=== PATIENT | female | born 1940 | race Caucasian/White ===

== ENCOUNTER 2023-09-05 20:35 | Emergency (ER) | payer MEDICARE, BC, SELFPAY ==
[2023-09-05 20:45] VITALS: BP 190/82
[2023-09-05 20:46] VITALS: BMI 24.9
[2023-09-05 20:50] VITALS: BP 190/82
[2023-09-05 21:00] VITALS: BP 161/57
[2023-09-05 21:02] LABS: Urine Albumin Negative (Neg - Trace); Urine Bilirubin Negative (Negative); Urine Character Clear (Clear); Urine Color Yellow; Urine Glucose Negative (Negative); Urine Ketone Negative (Negative); Urine Leukocyte Negative (Negative); Urine Nitrite Negative (Negative); Urine Occult Blood Negative (Negative); Urine Urobilinogen Negative (Neg - 1+)
[2023-09-05 21:05] LABS: % Basophils 0.5 % (0-2); % Eosinophils 2.8 % (0-6); % Lymphocytes 45.4 % (20.5-51.1); % Monocytes 8.5 % (1.7-9.3); % Neutrophils 42.8 % (42.2-75.2); Absolute Eosinophils 0.2 10^3/uL (0-0.7); Absolute Lymphocytes 2.7 10^3/uL (1.2-3.4); Absolute Monocytes 0.5 10^3/uL (0.1-0.6); Absolute Neutrophils 2.6 10^3/uL (1.4-6.5); Hematocrit 41.1 % (37.0-47.0); Hemoglobin 14.6 g/dL (12.0-16.0); Mean Corp Hgb Conc. 35.5 g/dL (33.0-37.0); Mean Corpuscular Hgb 31.7 pg (27.0-31.0); Mean Corpuscular Volume 89.3 fL (81.0-99.0); Mean Platelet Volume 10.8 fL (7.4-10.4); Nucleated Red Blood Cells % 0 %; Platelet Count 224 10^3/uL (130-400); Red Cell Dist. Width 14.9 % (11.5-14.5)
--- NOTE | 2023-09-05 21:11 | ED.GENMED ---
History of Present Illness
General
Chief Complaint: Abdominal Pain
Source: patient
Exam Limitations: none
Time Seen by Provider: 09/05/23 21:10
Nursing documentation reviewed up to this point in time: agreed with
History of Present Illness
History of Present Illness:
82-year-old female from home, history of uterine and bladder prolapse with a mesh sling application 10 years ago. Otherwise no significant past medical history, takes no prescriptive medications.
Patient states she has had right mid to lower abdominal pain off and on for months. In June she saw her nurse practitioner in [place], had a UA which was positive, took an antibiotic but still had the intermittent pain.
07/17 she came back [place] pain was increasing had a negative urinalysis was referred to colorectal surgery as she thought it may be a bowel problem
08/11, she saw colorectal surgeon Lester Devlin who could not find anything and ordered a colonoscopy which she has scheduled for 10/01
She has had no problems moving her bowels. Her last BM was earlier today.
Today, after eating at 4:30 PM she felt nauseous, went and laid down and felt a 'bulge' in her right lower abdomen.
She denies fever or chills. She denies vomiting. She does not feel nauseous now and the bulge in her abdomen is not there now. She also has no pain at this time.
She saw her [facility] nurse practitioner today and had blood work ordered which she had done at [facility] and also ordered was a pelvic and transvaginal ultrasound which she could not schedule soon enough so she came here for evaluation.
Past History
Past History
ED Past Medical History: None
ED Past Surgical History: Urological (Bladder and uterine prolapse surgery 10 years ago with sling and mesh)
Social History
Tobacco: Non-smoker
Alcohol: None
Personal:
Living: with family
Review of Systems
Review of Systems
Allergies reviewed?: Yes
All Other Systems: ROS reviewed and negative except as documented in HPI and ROS
Constitutional: Denies fever
Respiratory: Denies trouble breathing
Cardiac: Denies chest pain
ABD/GI: Reports abdominal pain and nausea; Denies vomiting, diarrhea, constipated, bloody stools, black stools or anorexia
: Denies dysuria, difficulty voiding or urgency
Musculoskeletal: Reports no symptoms
Skin: Reports no symptoms
Neurological: Reports no symptoms
Phy Exam
Physical Exam
Physical Exam:
GENERAL: No acute distress. A&Ox3.
CONSTITUTIONAL: Afebrile.
EYES: clear, conjunctivae normal
ENMT: moist mucus membranes
RESPIRATORY: Regular respirations, nonlabored, lungs clear.
CARDIOVASCULAR: Regular rate and rhythm, no murmurs, no rubs.
GI: Soft, nontender, normal BS, no palpable masses
MUSCULOSKELETAL: Moves with ease. Well perfused.
SKIN: Warm, dry, pink
PSYCH: Normal mood and affect. Well kept, interactive and appropriate
NEUROLOGIC: Awake, alert and oriented. No focal neurological deficits
Course
Orders/Labs/Results
Orders:
Orders
09/05/23 20:54
Complete Blood Count/With Diff Urgent
Comprehensive Metabolic Panel Urgent
Lipase Urgent
Urinalysis Reflex To Culture Urgent
Date Specimen was Collected: 09/05/23
Time Specimen was Collected: 20:48
09/05/23 21:24
0.9% Sodium Chloride 500 ml [Nss] 500 ml IV BOLUS
US Pelvis W Transvag Combined Urgent
Comment:
Reason For Exam: pain mid to right lower abdomen
Abnormal Lab Results
09/05/23
20:54
MCH 31.7 H pg
(27.0-31.0)
RDW 14.9 H %
(11.5-14.5)
MPV 10.8 H fL
(7.4-10.4)
Chloride 108 H mmol/L
(98-107)
Carbon Dioxide 21 L mmol/L
(22-30)
BUN 28 H mg/dl
(7-17)
09/05/23 20:54
09/05/23 20:54
Vital Signs
Initial and Last Documented VS:
Initial Vital Signs
BP
190/82
09/05/23 20:45
Last Documented Vital Signs
Temp Pulse Resp BP Pulse Ox
98.5 F 57 18 105/59 93
09/05/23 20:50 09/05/23 20:50 09/05/23 20:50 09/06/23 00:00 09/06/23 00:00
MDM/Problems Addressed
Differential Diagnosis Includes:
Intermittent hernia, intermittent ovarian torsion, colitis
MDM/Problems Addressed:
82-year-old female from home, history of uterine and bladder prolapse with a mesh sling application 10 years ago. Otherwise no significant past medical history, takes no prescriptive medications.
Patient states she has had right mid to lower abdominal pain off and on for months. In June she saw her nurse practitioner in [place], had a UA which was positive, took an antibiotic but still had the intermittent pain.
07/17 she came back [place] pain was increasing had a negative urinalysis was referred to colorectal surgery as she thought it may be a bowel problem
08/11, she saw colorectal surgeon Lester Devlin who could not find anything and ordered a colonoscopy which she has scheduled for 10/01
She has had no problems moving her bowels. Her last BM was earlier today.
Today, after eating at 4:30 PM she felt nauseous, went and laid down and felt a 'bulge' in her right lower abdomen.
She denies fever or chills. She denies vomiting. She does not feel nauseous now and the bulge in her abdomen is not there now. She also has no pain at this time.
She saw her [facility] nurse practitioner today and had blood work ordered which she had done at [facility] and also ordered was a pelvic and transvaginal ultrasound which she could not schedule soon enough so she came here for evaluation.
9:30 PM:
CBC normal
CMP with no clinically significant abnormality. BUN 28, IV fluids infusing for mild dehydration
Urinalysis is negative
12:00 AM 09/06/2023:
Ultrasound abdomen pelvis: Preliminary radiology report read: Normal size uterus. There is fluid distending the endometrial canal. This is indeterminate however consider follow-up pelvic exam to exclude the possibility of cervical stenosis or
other source of obstruction. Alternately we could perform an elective MRI of the pelvis. The ovaries are not visualized. No free fluid.
Results discussed with patient, she was given a copy of the report as well as all of her lab work.
She was referred back to her primary nurse practitioner tomorrow to discuss findings
She was given referral to [facility] and encouraged to follow-up with [facility].
Patient had no abdominal pain during her stay
Dressing self, ambulating well
*Critical Care Note
Total Time (30-74mins, 75-104mins- exclusive of procedures): Not Applicable
ED Attending Note
-
Portions of this chart may have been created with voice recognition software.� Occasional wrong word or��sound alike� substitutions may have occurred due to the inherent limitations of voice recognition software.
Discharge Plan
Departure
Patient Disposition: Home (Routine Discharge)
Date of Disposition: 09/06/23
Time of Disposition: 00:20
Patient with high blood pressure during this ER visit?: No
Condition: Good
Discharge Problem:
Abdominal pain
Instructions: Abdominal Pain
Prescriptions:
No Action
cyanocobalamin (vitamin B-12) 1,000 mcg Tablet
1,000 mcg PO DAILY
vitamin B complex [B Complex] Capsule
1 cap PO DAILY
resveratrol 100 mg Capsule
100 mg PO DAILY
cranberry fruit 400 mg Tablet
400 mg PO DAILY
Sumner-3 350 mg-235 mg- 90 mg-597 mg Capsule,Delayed Release(Dr/Ec)
1 cap PO DAILY
quercetin 500 mg Capsule
100 mg PO DAILY
astaxanthin 12 mg Capsule
12 mg PO DAILY
Magnesium Malate
5 tab PO HS
Prevagen
1 tab PO DAILY
Referrals:
Yvette Plunkett MD [Active] - Next open appointment
Jesica San CRNP [Family Provider] - Tomorrow
Activity Restrictions/Additional Instructions:
As we discussed, the ultrasound of your pelvis shows some fluid in the endometrial canal. Radiologist recommends a follow-up pelvic exam. Call your [place] in home sales consultant or the in home sales consultant recommended here for next available appointment. You may
need an MRI of the pelvis. This needs to be discussed with your CHILD [employer]FARE CASEWORK[facility] doctor.
Call your nurse practitioner tomorrow and inform of today's visit.
Your lab work shows nothing worrisome. It showed you were mildly dehydrated and you received IV fluids here
Interventions
Interventions:
*Risk Screen - Suicide Last Done: 09/06/23 00:21
*General Assessment Last Done: 09/05/23 20:51
*Neglect/Abuse Screening Last Done: 09/05/23 20:47
*ED COVID-19 Vaccine History Last Done: 09/05/23 20:46
EA-Bvohcj-Nrcaqjpbda Assessment Last Done: 09/05/23 20:42
Discharge Date and Time
Print Language: FAROESE
[2023-09-05 21:18] LABS: ALT (SGPT) 22 U/L (0-35); AST (SGOT) 29 U/L (14-36); Albumin 4.3 g/dl (3.5-5.0); Alkaline Phosphatase 64 U/L (38-126); Blood Urea Nitrogen 28 mg/dl (7-17); Calcium 9.6 mg/dl (8.4-10.2); Carbon Dioxide 21 mmol/L (22-30); Chloride 108 mmol/L (98-107); Estimated Creatinine Clearance 42 ml/min; Glucose 87 mg/dl (70-99); Sodium 139 mmol/L (135-145); Total Bilirubin 0.4 mg/dl (0.2-1.3); Total Protein 7.2 g/dl (6.3-8.2); eGFR > 60.00
[2023-09-05 21:25] LABS: Lipase 60 U/L (23-300)
[2023-09-05] MEDS: NSS 500 IV (21:51)
[2023-09-05 22:00] VITALS: BP 161/56
[2023-09-05 23:00] VITALS: BP 174/75
[2023-09-06] VITALS: BP 105/59
== END 2023-09-06 01:47 | disposition home or self-care (01) ==
LOC: EMR 20:35
PROVIDERS: EMERGENCY PHYSICIAN Emergency Medicine; FAMILY PHYSICIAN Nurse Practitioner Adult Health
DX: R10.30 Lower abdominal pain, unspecified (principal)
CPT/HCPCS: 99284; 76830; 76856; 80053; 81003; 83690; 85025

== ENCOUNTER → 2023-10-02 06:25 | Day surgery (SDC) | payer MEDICARE, BC, SELFPAY | LOC: GI 06:25 | PROVIDERS: ATTENDING PHYSICIAN Surgery | DX: Z12.11 Encounter for screening for malignant neoplasm of colon (principal); R10.84 Generalized abdominal pain; K57.30 Diverticulosis of large intestine without perforation or abscess without bleeding; K64.4 Residual hemorrhoidal skin tags; K64.8 Other hemorrhoids; K56.699 Other intestinal obstruction unspecified as to partial versus complete obstruction | CPT/HCPCS: G0121 ==

== ENCOUNTER → 2023-10-11 11:28 | Outpatient (REF) | payer MEDICARE, BC, SELFPAY | LOC: RAD 11:28 | PROVIDERS: ATTENDING PHYSICIAN Surgery | DX: K56.699 Other intestinal obstruction unspecified as to partial versus complete obstruction (principal) | CPT/HCPCS: 74177; Q9967 ==

== ENCOUNTER 2023-11-13 06:02 | Day surgery (SDC) | payer MEDICARE, BC, SELFPAY ==
[2023-11-13] VITALS (8 sets, daily range): BP systolic 133–186; BP diastolic 50–76; BMI 24.7
[2023-11-13] MEDS: TYLENOL 1000 MG PO (06:30)
[2023-11-13] MEDS: NORMOSOL-R/PLASMALYTE-A 1000 IV (06:31)
--- NOTE | 2023-11-13 07:16 | W.SUR.PREOP ---
Pre-Operative Surgical Note
-
I have examined this patient prior to the performance of the scheduled procedure.
The patient's condition is unchanged from the time of the current History and
Physical and the patient is able to undergo the scheduled procedure.
--- NOTE | 2023-11-13 08:50 | W.IMMPOSTOP ---
Surgical Immed Post Op Note
-
Primary Surgeon: Hakeem Curran MD
Assisting Surgeon: None
Pre-op Diagnosis: Right inguinal hernia
Post-op Diagnosis: Same
Procedure Performed: Open right inguinal hernia repair with mesh
Anesthesia Type: General
Specimen / Cultures: Right inguinal nerve
Estimated Blood Loss: 3 cc
Complications: None
Operative Findings: Small indirect inguinal hernia containing preperitoneal fat. Hernia sac opened and no femoral defect palpated. Hernia sac closed with a 3-0 Vicryl. There was a small cord lipoma that was debulked and reduced. There was no
direct component. The iliohypogastric, ilioinguinal and round ligament were all identified and ligated. The indirect ring was closed with 0 PDS suture prior to placement of a Bard flat mesh.
--- NOTE | 2023-11-13 09:06 | OR.RPT ---
Operative Report
Operative Report
Patient Name: Bel Morrison
: 1940
Date of Operation: 11/13/2023
Preoperative Diagnosis: Reducible Inguinal hernia, right
Postoperative Diagnosis: Same
Procedure(s):
Open Inguinal Hernia Repair with mesh
Surgeon(s):
Dr. Curran
Senior Courtroom Clerk(s):
TONY Rubio
Anesthesia: General
Estimated Blood Loss: 3 cc
Urine Output: None
Drains/Lines/Implants: 3 x 6 inch Bard Flat Mesh cut to size
Specimens: None
Indication for surgery: The patient has a history of groin pain and some asymmetry noted on exam and was found to have a right inguinal Hernia. Following review of therapeutic options they has elected to undergo an open repair
Operative Findings: Small indirect inguinal hernia containing preperitoneal fat. Hernia sac opened and no femoral defect palpated. Hernia sac closed with a 3-0 Vicryl. There was a small cord lipoma that was debulked and reduced. There was no
direct component. The iliohypogastric, ilioinguinal and round ligament were all identified and ligated. The indirect ring was closed with 0 PDS suture prior to placement of a Bard flat mesh.
Details of the operation:
After induction of general anesthesia, the patient was clipped, prepped and draped in the supine position. A team timeout was performed confirming administration of DVT prophylaxis, IV antibiotics and SCDs. The ASIS and pubic tubercle were marked
and an incision was chosen along the course of a skin line. The skin was anesthestized with Lidocaine. An incision was made through the skin line and dissection carried down through subcutaneous tissue and Catina's fascia. The superficial
epigastric vein was identified and ligated. A Small Felipe wound retractor was used to provide exposure. The external oblique fibers were then divided in the direction of travel. The ilioinguinal and iliohypogastric nerves were identified and
resected. Dissection was carried down to the floor, which revealed the following:
At the site of the indirect (internal) ring, there was a moderate size protrusion of preperitoneal fat, the hernia sac was identified, dissected and reduced off the round ligament. The sac was opened and seem to be containing sliding preperitoneal
fat. Before closing this with a 3-0 Vicryl I did palpate through the defect to ensure there was no femoral component which there was not. The round ligament was ligated at the level of the indirect ring.
A cord lipoma was also identified and reduced.
The direct space, floor of the canal revealed no weakness.
The indirect ring was then closed with a running 0 PDS suture from the inferior edge of the conjoined tendon to the shelving edge. The floor of the canal was then reconstructed by placing a 6x3 in BARD flat polypropylene mesh trimmed to size and
secured it in place with interrupted 0-PDS sutures medially at the pubic tubercle, inferiorly along the inguinal ligament, laterally/superiorly in the conjoint tendon. Care was taken not to injure or entrap any nerves. The external oblique fibers
were then closed using a running 2-0 Vicryl suture. Catina's fascia was then closed with interrupted 3-0 Vicryl suture. The skin was closed in layers with interrupted 3-0 vicryl deep dermals followed by a running subcuticular 4-0 Monocryl followed
by dermabond. The patient returned to the Recovery Room in stable condition. Sponge and instrument counts were correct. No specimens sent to Pathology.
I was the attending physician and performed the procedure with assistance from the CUSTOMS AND IMMIGRATION OFFICER above. I was present for all portions of the case
Hakeem Curran MD
[2023-11-13] MEDS: MORPHINE SULFATE 1 MG IV ×2 (09:08→09:24)
[2023-11-13] MEDS: ROXICODONE 5 MG PO (10:29)
== END 2023-11-13 10:40 | disposition home or self-care (01) ==
LOC: SDS 06:02
PROVIDERS: ATTENDING PHYSICIAN Surgery
DX: K40.90 Unilateral inguinal hernia, without obstruction or gangrene, not specified as recurrent (principal)
CPT/HCPCS: 49505; 88305; C1781